=== PATIENT | female | born 1990 | race Two or more races ===

== ENCOUNTER 2020-02-12 13:51 | Emergency (ER) | payer SELFPAY ==
[~2020-02-12] VITALS: Ht 162.6 cm; Wt 79.5 kg
[2020-02-12 14:03] VITALS: Ht 162.6 cm; Wt 79.5 kg
[2020-02-12 14:37] LABS: BASOPHILS 0.2 % (0-2); EOSINOPHILS 0.1 % (0-7); HEMOGLOBIN 14.2 g/dL (12-16); IMMATURE GRANULOCYTES 0.6 % (0-5); LYMPHOCYTES 21.1 % (15-50); MCH 29.6 pg (26.0-34.0); MCHC 32.3 g/dL (31.0-37.0); MCV 91.9 fL (80.0-100.0); MEAN PLATELET VOLUME 11.2 fL (7.4-10.4); MONOCYTES 6.8 % (2-11); NEUTROPHILS 71.2 % (40-80); PLATELET COUNT 212 10x3/uL (130-400); RBC 4.79 10x6/uL (4.00-5.40); RDW 12.6 % (11.5-14.5); WBC 12.7 10x3/uL (4.8-10.8)
[2020-02-12 14:41] LABS: CALC OSMOLALITY 269 mosm/kg (275-300); CALCIUM 9.1 mg/dL (8.5-10.1); CARBON DIOXIDE 23.4 mmol/L (21.0-32.0); CHLORIDE - SERUM 102 mmol/L (98-107); CREATININE - SERUM 0.8 mg/dL (0.6-1.3); GLUCOSE 101 mg/dL (74-106); POTASSIUM - SERUM 3.8 mmol/L (3.5-5.1); SODIUM 135 mmol/L (136-145); UREA NITROGEN 12 mg/dL (7-18); eGFR NON AFRICAN AMERICAN 89 mL/min (90-120)
[2020-02-12 14:48] LABS: BILIRUBIN NEGATIVE (NEGATIVE); GLUCOSE NEGATIVE (NEGATIVE); KETONE SMALL mg/dL (NEGATIVE); NITRITE NEGATIVE (NEGATIVE); SPECIFIC GRAVITY 1.015 (1.005-1.020); UROBILINOGEN NORMAL (NORMAL)
[2020-02-12 14:49] LABS: ALBUMIN 4.1 g/dL (3.4-5.0); ALKALINE PHOSPHATASE 65 U/L (30-120); ALT (SGPT) 26 U/L (10-68); BILIRUBIN - TOTAL 0.45 mg/dL (0.2-1.3); LIPASE 172 U/L (73-393); PROTEIN - SERUM 8.1 g/dL (6.4-8.2)
[2020-02-12 14:50] LABS: RED CELLS - URINE 0-5 /hpf (0-5)
[2020-02-12 14:59] LABS: BACTERIA MODERATE /hpf (NEGATIVE); HCG URINE POSITIVE (NEGATIVE)
[2020-02-12] MEDS ORDERED: FOLIC ACID0.8 MG PO (16:00)
[2020-02-12] MEDS ORDERED: KEFLEX500 MG PO (16:00)
[2020-02-12] MEDS ORDERED: MULTI-DAY VITAM1 TAB PO (16:00)
[2020-02-12] MEDS ORDERED: ZOFRAN ODT4 MG/UDTAB PO (16:00)
[2020-02-12 17:16] VITALS: BP 133/61
== END 2020-02-12 17:21 | disposition home or self-care (01) ==
LOC: D.ER 13:51
PROVIDERS: Family Medicine
DX: O26.899 Other specified pregnancy related conditions, unspecified trimester (principal); N39.0 Urinary tract infection, site not specified